=== PATIENT | male | born 1975 | race African-American/Black ===

== ENCOUNTER 2019-03-16 09:43 | Emergency (ER) | payer OTHER ==
[2019-03-16 09:51] VITALS: BP 121/69; PULSE 60; TEMP 98.2; BMI 24.3
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
[2019-03-16] MEDS ORDERED: DIPHTH,PERTUSS(ACELL),TET 0.5 ML DISP.SYRIN IM ONE ×2 (10:11→10:28)
== END 2019-03-16 10:36 | disposition home or self-care (01) ==
LOC: JERFT 09:43
PROC: 3E0234Z Introduction of Serum, Toxoid and Vaccine into Muscle, Percutaneous Approach (ICD-10-PCS; principal; 2019-03-16)
DX: S66.812A Strain of other specified muscles, fascia and tendons at wrist and hand level, left hand, initial encounter (principal); S66.811A Strain of other specified muscles, fascia and tendons at wrist and hand level, right hand, initial encounter; S60.512A Abrasion of left hand, initial encounter; Y35.811A Legal intervention involving manhandling, law enforcement official injured, initial encounter; Y93.89 Activity, other specified; Y92.89 Other specified places as the place of occurrence of the external cause; Y99.0 Civilian activity done for income or pay
CPT/HCPCS: 90715; 99282-25

== ENCOUNTER 2019-05-16 12:38 | Emergency (ER) | payer OTHER ==
--- NOTE | 2019-05-16 12:42 | PDOC ---
Rapid Medical Evaluation Time Seen by Provider: 05/16/19 12:40 Medical Evaluation: Allergies Allergy/AdvReac Type Severity Reaction Status Date / Time No Known Allergies Allergy Verified 03/16/19 09:53 05/16/19 12:40 CC: right hand pain s/p fall down stairs 05/12. Denies head trauma. PE: No focal findings. Orders: xray Patient will proceed to ED for further evaluation. Discharge Disposition - Diagnosis Hand joint pain - Referrals - Patient Instructions - Post Discharge Activity
[2019-05-16 12:44] VITALS: BP 127/88; PULSE 63; TEMP 97.5; BMI 24.3
--- NOTE | 2019-05-16 13:59 | PDOC ---
History of Present Illness - General Chief Complaint: Pain Stated Complaint: RT HAND PAIN Time Seen by Provider: 05/16/19 12:40 - History of Present Illness Initial Comments: 05/16/19 13:57 43-year-old male without comorbidities presents for evaluation of right wrist pain after fall on outstretched upper extremity 5 days ago Past History - Past Medical History Allergies/Adverse Reactions: Allergies Allergy/AdvReac Type Severity Reaction Status Date / Time No Known Allergies Allergy Verified 05/16/19 12:47 Home Medications: Ambulatory Orders Ibuprofen [Motrin -] 600 mg PO TID #21 tablet 03/16/19 COPD: No - Immunization History Immunization Up to Date: Yes - Psycho Social/Smoking Cessation Hx Smoking History: Never smoked Information on smoking cessation initiated: No Hx Alcohol Use: No Drug/Substance Use Hx: No Review of Systems - Review of Systems Musculoskeletal: Yes: Joint Pain *Physical Exam - Vital Signs Last Vital Signs Temp Pulse Resp BP Pulse Ox 97.5 F L 63 18 127/88 100 05/16/19 12:42 05/16/19 12:42 05/16/19 12:42 05/16/19 12:42 05/16/19 12:42 - Physical Exam Comments: 05/16/19 13:57 Right wrist skin color and temperature normal range of motion is full with pain at terminal flexion and extension. Full supination and pronation without discomfort. No tenderness about the elbow radial head or along the forearm. Compartments are soft and nontender. No tenderness about the distal radius ulnar styloid or snuffbox. Mild tenderness about the scapholunate area 5 out of 5 quality improvement analyst strength neurovascularly intact without gross sensorimotor deficits Medical Decision Making - Medical Decision Making 05/16/19 13:58 X-rays of the right wrist show no evidence of fracture trauma or destructive process. This is a right wrist sprain. Cock-up wrist splint follow-up with Ortho Tylenol Motrin for pain Discharge - Discharge Information Problems reviewed: Yes Clinical Impression/Diagnosis: Hand joint pain, Right wrist sprain Condition: Stable Disposition: HOME - Admission No - Follow up/Referral Referrals: Arden Daniel DO [Staff Physician] - - Patient Discharge Instructions Additional Instructions: Please wear the splint for comfort. Tylenol Motrin as directed for pain. Return to the emergency room for worsening symptoms. Without fail please follow -up with orthopedic surgery in 1 to 2 days for further evaluation and treatment options. - Post Discharge Activity
== END 2019-05-16 14:35 | disposition home or self-care (01) ==
LOC: JERFT 12:38
PROC: 2W3CX1Z Immobilization of Right Lower Arm using Splint (ICD-10-PCS; principal; 2019-05-16)
DX: S63.501A Unspecified sprain of right wrist, initial encounter (principal); W10.8XXA Fall (on) (from) other stairs and steps, initial encounter; Y93.89 Activity, other specified; Y92.89 Other specified places as the place of occurrence of the external cause; Y99.8 Other external cause status
CPT/HCPCS: 73110-TC-RT-FY; 73130-TC-RT-FY; 99281-25